=== PATIENT | female | born 1945 | race Caucasian/White ===

== ENCOUNTER 2016-12-03 08:45 | Day surgery (SDC) | payer MEDICARE ==
--- NOTE | ~2016-12-03 | EGD ---
EGD REPORT [facility] [address] [place]. [id number] NAME: EMILY GONZALEZ : [birth year] STATUS : REG [facility]#: [id number] AGE: 71 ADM/REG DATE : 12/03/16 MR#: [id number] REPORT SERV DATE: 12/03/16 DICTATED BY: ISABEAL LING DATE: 12/03/16 REPORT STATUS : Draft TRANSCRIBED BY: [facility] DATE: 12/03/16 [facility] Center Patient Name: Emily Gonzalez Date of : 1945 Attending MD: DARIEN LING MD Procedure Date No Time: 12/03/2016 Procedure: Colonoscopy Indications: High risk colon cancer surveillance: Personal history of colon cancer Referring MD: fJ Pierre Medicines: See the Anesthesia note for documentation of the administered medications Complications: No immediate complications. Estimated blood loss: None. Procedure: Pre-Anesthesia Assessment: - ASA Grade Assessment: III - A patient with severe systemic disease. - Prior to the procedure, a History and Physical was performed, and patient medications and allergies were reviewed. The patient's tolerance of previous anesthesia was also reviewed. The risks and benefits of the procedure and the sedation options and risks were discussed with the patient. All questions were answered, and informed consent was obtained. Prior Anticoagulants: The patient has taken aspirin and Plavix (clopidogrel), last doses were 1 day prior to procedure. After reviewing the risks and benefits, the patient was deemed in satisfactory condition to undergo the procedure. After I obtained informed consent, the scope was passed under direct vision. Throughout the procedure, the patient's blood pressure, pulse, and oxygen saturations were monitored continuously. The PCF [id number] was introduced through the anus and advanced to the ileocolonic anastomosis. The rectum and ileocolonic anastamosis were photographed. The entire colon was examined. The colonoscopy was performed without difficulty. The patient tolerated the procedure well. The quality of the bowel preparation was adequate. Findings: The perianal and digital rectal examinations were normal. A sessile polyp was found in the sigmoid colon. The polyp was 4 mm in size. The polyp was removed with a cold snare. Resection and retrieval were complete. Multiple small and large-mouthed diverticula were found in the entire colon. EGD REPORT [place] [id number] [facility] [place]. [address] NAME: EMILY GONZALEZ : [birth year] STATUS : REG [facility]#: [id number] AGE: 71 ADM/REG DATE : 12/03/16 MR#: [id number] REPORT SERV DATE: 12/03/16 DICTATED BY: ISABELA LING DATE: 12/03/16 REPORT STATUS : Draft TRANSCRIBED BY: [employer] DATE: 12/03/16 Non-bleeding internal hemorrhoids were found during retroflexion and were Grade I (internal hemorrhoids that do not prolapse). No other significant abnormalities were identified in a careful examination of the remainder of the colon. There was evidence of a prior end-to-end ileo-colonic anastomosis in the mid ascending colon. This was patent. This was characterized by healthy appearing mucosa. This was traversed. Impression: - One 4 mm polyp in the sigmoid colon. Resected and retrieved. - Diverticulosis in the entire examined colon. - Non-bleeding internal hemorrhoids. - Patent end-to-end ileo-colonic anastomosis. Recommendation: - Patient has a contact number available for emergencies. The signs and symptoms of potential delayed complications were discussed with the patient. Return to normal activities tomorrow. Written discharge instructions were provided to the patient. - High fiber diet indefinitely. - Discharge patient to home. - Continue present medications. - Await pathology results. - Repeat colonoscopy in 5 years for surveillance. Procedure Code(s): --- Professional --- 10497, Colonoscopy, flexible, proximal to splenic flexure; with removal of tumor(s), polyp(s), or other lesion(s) by snare technique Diagnosis Code(s): --- Professional --- D12.5, Benign neoplasm of sigmoid colon K64.0, First degree hemorrhoids K57.30, Diverticulosis of large intestine without perforation or abscess without bleeding Z98.0, Intestinal bypass and anastomosis status Z85.038, Personal history of other malignant neoplasm of large intestine CPT copyright 2013 [employer]. All rights reserved. The codes documented in this report are preliminary and upon him tech review may be revised to meet current compliance requirements. DARIEN LING MD EGD REPORT [facility] [address] [place] [address] NAME: EMILY GONZALEZ : [birth year] STATUS : REG [facility] PAT#: [id number] AGE: 71 ADM/REG DATE : 12/03/16 MR#: [id number] REPORT SERV DATE: 12/03/16 DICTATED BY: ISABELA LING DATE: 12/03/16 REPORT STATUS : Draft TRANSCRIBED BY: [employer] DATE: 12/03/16 12/03/2016 9:46 AM This report has been signed electronically. Number of Addenda: 0 Note Initiated On: 12/03/2016 9:11 AM Scope Withdrawal Time 0 hours 9 minutes 32 seconds [address] [place] [id number]
[~2016-12-03 08:45] MED LIST: ALEVE220 MG PO; AMARYL4 PO; CYANO1000T PO; D 5000 PO; ENDOCET1 TAB PO; FIORICET-COD 51 EACH PO; GLUCOPHAGE1000 MG PO; HALF81 PO; LIPITOR40 PO; PERCOCET1 TA4 PO; PLAVIX PO; PRILO PO; V2 PO; ZOL50 PO
== END 2016-12-03 23:59 | disposition home or self-care (01) ==
LOC: DMU 08:45
PROVIDERS: Internal Medicine Gastroenterology
PROC: 0DBN8ZX Excision of Sigmoid Colon, Via Natural or Artificial Opening Endoscopic, Diagnostic (ICD-10-PCS; principal; 2016-12-03 10:00)
DX: Z12.11 Encounter for screening for malignant neoplasm of colon (principal); K63.5 Polyp of colon; K64.0 First degree hemorrhoids; K57.30 Diverticulosis of large intestine without perforation or abscess without bleeding; G47.33 Obstructive sleep apnea (adult) (pediatric); E11.9 Type 2 diabetes mellitus without complications; F17.210 Nicotine dependence, cigarettes, uncomplicated; F32.9 Major depressive disorder, single episode, unspecified; Z98.890 Other specified postprocedural states; Z85.038 Personal history of other malignant neoplasm of large intestine; Z98.0 Intestinal bypass and anastomosis status; Z86.73 Personal history of transient ischemic attack (TIA), and cerebral infarction without residual deficits
CPT/HCPCS: 82962; 88305